=== PATIENT | male | born 1980 | race Asian ===

== ENCOUNTER 2018-06-11 14:21 | Emergency (ER) | payer BC ==
[~2018-06-11] VITALS: Ht 167.6 cm; Wt 78.9 kg
[2018-06-11 14:26] VITALS: Ht 167.6 cm; Wt 78.9 kg
[2018-06-11 15:13] LABS: BASOPHIL % 0.2 % (0-2); PLATELET COUNT 301 x10^3mcL (130-400)
[2018-06-11 15:15] LABS: RED CELL DISTRIBUTION WIDTH 16.8 % (11.5-14.5)
[2018-06-11 15:19] LABS: CALCIUM 8.7 mg/dL (8.5-10.1); CARBON DIOXIDE 25.6 mmol/L (21-32); CHLORIDE SERUM 102 mmol/L (98-107); CREATININE SERUM 1.1 mg/dL (0.7-1.3); GFR1 > 60 mL/min; GLUCOSE SERUM 121 mg/dL (74-106); POTASSIUM SERUM 3.4 mmol/L (3.5-5.1); SODIUM SERUM 138 mmol/L (136-145)
[2018-06-11 15:24] LABS: ALBUMIN 3.8 g/dL (3.4-5.0); ALKALINE PHOSPHATASE 88 U/L (46-116); ALT/SGPT 111 U/L (16-63); AST/SGOT 34 U/L (15-37); BILIRUBIN TOTAL 1.1 mg/dL (0.20-1.00)
[2018-06-11 16:52] VITALS: BP 110/70
== END 2018-06-11 16:52 | disposition home or self-care (01) ==
LOC: ED 14:21
PROVIDERS: Emergency Medicine
DX: R00.2 Palpitations (principal); E86.0 Dehydration; R07.89 Other chest pain; K21.9 Gastro-esophageal reflux disease without esophagitis
CPT/HCPCS: J2060; J7030; Q0092

== ENCOUNTER 2018-06-12 10:13 | Emergency (ER) | payer BC ==
[~2018-06-12] VITALS: Ht 167.6 cm; Wt 80.5 kg
[2018-06-12 10:16] VITALS: Ht 167.6 cm; Wt 80.5 kg
[2018-06-12 11:03] LABS: CALCIUM 8.5 mg/dL (8.5-10.1); CARBON DIOXIDE 25.9 mmol/L (21-32); CHLORIDE SERUM 104 mmol/L (98-107); GFR1 > 60 mL/min; GLUCOSE SERUM 132 mg/dL (74-106); POTASSIUM SERUM 4.3 mmol/L (3.5-5.1); SODIUM SERUM 139 mmol/L (136-145)
[2018-06-12 11:06] LABS: ALBUMIN 3.8 g/dL (3.4-5.0); ALKALINE PHOSPHATASE 72 U/L (46-116); ALT/SGPT 92 U/L (16-63); AST/SGOT 21 U/L (15-37); BILIRUBIN TOTAL 0.77 mg/dL (0.20-1.00); MAGNESIUM 2.1 mg/dL (1.8-2.4); TOTAL PROTEIN, SERUM 7.7 g/dL (6.4-8.2)
[2018-06-12 11:17] LABS: FREE T4 1.04 ng/dL (0.76-1.46); T4(THYROXINE) 8.7 ug/dL (4.7-13.3)
[2018-06-12 11:38] LABS: AMPHETAMINE QUAL UR NONE DETECTED (See below)
[2018-06-12 11:39] LABS: T3 TOTAL 0.93 ng/mL
[2018-06-12 12:29] VITALS: BP 132/77
== END 2018-06-12 12:29 | disposition home or self-care (01) ==
LOC: ED 10:13
PROVIDERS: Emergency Medicine
DX: R00.2 Palpitations (principal); K21.9 Gastro-esophageal reflux disease without esophagitis; R42 Dizziness and giddiness
CPT/HCPCS: 36415; 84439